=== PATIENT | male | born 1995 | race Caucasian/White ===

== ENCOUNTER 2018-08-31 01:52 | Emergency (ER) | payer OTHER ==
[2018-08-31] MEDS ORDERED: NS 1,000 ML IV ONE (01:57)
--- NOTE | 2018-08-31 01:58 | EDPHY ---
H & P Time Seen by Provider: 08/31/18 01:58 HPI/ROS: HPI CHIEF COMPLAINT: Chest pressure, gurgling in his chest. HISTORY OF PRESENT ILLNESS: 23-year-old male, presents emergency room stating that he has had pressure throughout his entire chest since noon today. It is now 2:00 a.m.. Also reports a gurgling sensation in his chest. He reports to me that he does feel anxious. He reports that on Monday he did cocaine. Also Adderall. This is now Monday morning a 1 week ago. He does smoke tobacco regularly. Marijuana regularly. No history of cardiovascular disease. Appears anxious upon arrival. Patient states that he did cocaine this week. As well as Adderall. Tobacco. Past Medical History: Denies significant medical history Past Surgical History: Denies significant surgical history Social History: Admits to Cocaine use, Adderall abuse, marijuana, tobacco Family History: Noncontributory ROS REVIEW OF SYSTEMS: 10 Systems were reviewed and negative with the exception of the elements mentioned in the history of present illness. Exam Constitutional triage nursing summary reviewed, vital signs reviewed, awake/ alert. Eyes normal conjunctivae and sclera, EOMI, PERRLA. HENT normal inspection, atraumatic, moist mucus membranes, no epistaxis, neck supple/ no meningismus, no raccoon eyes. Respiratory clear to auscultation bilaterally, normal breath sounds, no respiratory distress, no wheezing. Cardiovascular rate normal, regular rhythm, no murmur, no edema, distal pulses normal. Gastrointestinal soft, non-tender, no rebound, no guarding, normal bowel sounds, no distension, no pulsatile mass. Genitourinary no CVA tenderness. Musculoskeletal no midline vertebral tenderness, full range of motion, no calf swelling, no tenderness of extremities, no meningismus, good pulses, neurovascularly intact. Skin pink, warm, & dry, no rash, skin atraumatic. Neurologic awake, alert and oriented x 3, AAOx3, moves all 4 extremities equally, motor intact, sensory intact, CN II-XII intact, normal cerebellar, normal vision, normal speech. Psychiatric normal mood/affect. Heme/Lymph/Immune no lymphadenopathy. Differential diagnosis includes but is not limited to: Cocaine induced anxiety , cocaine induced chest pain ACS, atypical chest pain, pneumothorax, pneumonia , pulmonary embolism, aortic dissection, congestive heart failure, tumor, musculoskeletal pain, esophageal pain, GERD, peptic ulcer disease, pancreatitis Medical Decision Making: Plan for this patient IV establishment IV fluid bolus obtain EKG, chest x-ray, drug screen, IV Ativan, IV fluids, and re-evaluate. Re-evaluation: EKG interpretation by me on record in [employer] system. Impression time of EKG 2:07 a.m., sinus rhythm otherwise no acute ischemia no ST elevation or ST depression or T-wave abnormalities. No prolonged intervals. 6:13 a.m.. Patient resting comfortably no acute distress. EKG interpretation by me on record in [employer] system. Impression time of EKG 6:06 a.m., sinus rhythm rate of 54 no signs of acute ischemia. No signs of cardiac arrhythmia. 0752: Patient re-evaluated this time resting comfortably in no acute distress. No chest pain or shortness of breath vital signs are stable. The patient has been monitored here for 6 hr in the emergency room he had 2 troponins that are-0.00. The patient had 2 EKGs that are nonischemic. His 2nd EKG time 6:06 a.m., sinus rhythm rate of 54, without any signs of acute ischemia specifically no ST elevation no ST depression or T-wave abnormalities and no prolonged intervals. His initial EKG was timed 2:07 a.m. Sinus rhythm rate of 59 without any acute ischemia. I did recommend the patient refrain from doing cocaine or other drugs as this may be contributing to his anxiety and chest pressure. Additionally the patient received IV fluids and IV Ativan here and is resting comfortably and feels well. Denies any complaints at this time. He would like to go home. Return precautions discussed. Refrain from drug use. Chest x-ray one view negative for acute cardiopulmonary disease interpreted by myself. No pneumothorax. Cardiac silhouette normal. Source: Patient - Medical/Surgical History Hx Asthma: No Hx Chronic Respiratory Disease: No Hx Diabetes: No Hx Cardiac Disease: No Hx Renal Disease: No Hx Cirrhosis: No Hx Alcoholism: No Hx HIV/AIDS: No Hx Splenectomy or Spleen Trauma: No Other PMH: PMHx: heart murmur as child. PSHx: LUE cyst removal, wisdom tooth extraction, L wrist, other unk - Social History Smoking Status: Never smoked Constitutional: Initial Vital Signs Temperature (C) 36.5 C 08/31/18 01:56 Heart Rate 79 08/31/18 01:56 Respiratory Rate 18 08/31/18 01:56 Blood Pressure 126/87 H 08/31/18 01:56 O2 Sat (%) 96 08/31/18 01:56 O2 Delivery Mode Room Air Allergies/Adverse Reactions: peanuts Allergy (Uncoded 08/31/18 01:59) Home Medications: Medication Instructions Recorded NK [No Known Home Meds] 08/31/18 Medical Decision Making - Data Points Laboratory Results: Laboratory Results 08/31/18 02:13 08/31/18 02:13 08/31/18 08/31/18 08/31/18 06:12 04:00 02:15 WBC RBC Hgb Hct MCV MCH MCHC RDW Plt Count MPV Neut % (Auto) Lymph % (Auto) [place] % (Auto) Eos % (Auto) Baso % (Auto) Nucleat RBC Rel Count Absolute Neuts (auto) Absolute Lymphs (auto) Absolute Monos (auto) Absolute Eos (auto) Absolute Basos (auto) Absolute Nucleated RBC Immature Gran % Immature Gran # Sodium Potassium Chloride Carbon Dioxide Anion Gap BUN Creatinine Estimated GFR Glucose Calcium Magnesium Total Bilirubin Conjugated Bilirubin Unconjugated Bilirubin AST ALT Alkaline Phosphatase POC Troponin I 0.00 ng/mL ng/mL 0.00 ng/mL ng/mL (0.00-0.08) (0.00-0.08) NT-Pro-B Natriuret Pep Total Protein Albumin Urine Opiates Screen NEGATIVE (NEGATIVE) Urine Barbiturates NEGATIVE (NEGATIVE) Ur Phencyclidine Scrn NEGATIVE (NEGATIVE) Ur Amphetamine Screen NEGATIVE (NEGATIVE) U Benzodiazepines Scrn NEGATIVE (NEGATIVE) Urine Cocaine Screen NEGATIVE (NEGATIVE) U Marijuana (THC) Screen NEGATIVE (NEGATIVE) 08/31/18 08/31/18 02:13 02:13 WBC 8.70 10^3/uL 10^3/uL (3.80-9.50) RBC 4.81 10^6/uL 10^6/uL (4.40-6.38) Hgb 14.9 g/dL g/dL (13.7-17.5) Hct 41.7 % % (40.0-51.0) MCV 86.7 fL fL (81.5-99.8) MCH 31.0 pg pg (27.9-34.1) MCHC 35.7 g/dL g/dL (32.4-36.7) RDW 11.9 % % (11.5-15.2) Plt Count 341 10^3/uL 10^3/uL (150-400) MPV 9.3 fL fL (8.7-11.7) Neut % (Auto) 42.9 % % (39.3-74.2) Lymph % (Auto) 43.4 % % (15.0-45.0) [place] % (Auto) 7.6 % % (4.5-13.0) Eos % (Auto) 5.3 % % (0.6-7.6) Baso % (Auto) 0.6 % % (0.3-1.7) Nucleat RBC Rel Count 0.0 % % (0.0-0.2) Absolute Neuts (auto) 3.73 10^3/uL 10^3/uL (1.70-6.50) Absolute Lymphs (auto) 3.78 10^3/uL H 10^3/uL (1.00-3.00) Absolute Monos (auto) 0.66 10^3/uL 10^3/uL (0.30-0.80) Absolute Eos (auto) 0.46 10^3/uL H 10^3/uL (0.03-0.40) Absolute Basos (auto) 0.05 10^3/uL 10^3/uL (0.02-0.10) Absolute Nucleated RBC 0.00 10^3/uL 10^3/uL (0-0.01) Immature Gran % 0.2 % % (0.0-1.1) Immature Gran # 0.02 10^3/uL 10^3/uL (0.00-0.10) Sodium 141 mEq/L mEq/L (135-145) Potassium 4.1 mEq/L mEq/L (3.5-5.2) Chloride 105 mEq/L mEq/L (97-110) Carbon Dioxide 28 mEq/l mEq/l (22-31) Anion Gap 8 mEq/L mEq/L (6-14) BUN 16 mg/dL mg/dL (7-23) Creatinine 0.9 mg/dL mg/dL (0.7-1.3) Estimated GFR > 60 Glucose 90 mg/dL mg/dL (70-100) Calcium 10.1 mg/dL mg/dL (8.5-10.4) Magnesium 2.0 mg/dL mg/dL (1.6-2.3) Total Bilirubin 0.5 mg/dL mg/dL (0.1-1.4) Conjugated Bilirubin 0.2 mg/dL mg/dL (0.0-0.5) Unconjugated Bilirubin 0.3 mg/dL mg/dL (0.0-1.1) AST 24 IU/L IU/L (17-59) ALT 30 IU/L IU/L (21-72) Alkaline Phosphatase 57 IU/L IU/L (38-126) POC Troponin I NT-Pro-B Natriuret Pep 15 pg/mL pg/mL (0-125) Total Protein 6.8 g/dL g/dL (6.3-8.2) Albumin 4.3 g/dL g/dL (3.5-5.0) Urine Opiates Screen Urine Barbiturates Ur Phencyclidine Scrn Ur Amphetamine Screen U Benzodiazepines Scrn Urine Cocaine Screen U Marijuana (THC) Screen Medications Given: Discontinued Medications Sodium Chloride (Ns) 1,000 mls @ 0 mls/hr IV EDNOW ONE; Wide Open PRN Reason: Protocol Stop: 08/31/18 01:58 Last Admin: 08/31/18 02:15 Dose: 1,000 mls Lorazepam (Ativan Injection) 1 mg IVP EDNOW ONE Stop: 08/31/18 02:01 Last Admin: 08/31/18 02:15 Dose: 1 mg Point of Care Test Results: Chemistry 08/31/18 08/31/18 06:12 02:15 POC Troponin I 0.00 ng/mL ng/mL 0.00 ng/mL ng/mL (0.00-0.08) (0.00-0.08) Departure - Departure Disposition: Home, Routine, Self-Care Clinical Impression: Anxiety Condition: Good Instructions: Anxiety (ED) Additional Instructions: 1. Return emergency room if you have worsening symptoms 2. Refrain from drug use. 3. Stay well-hydrated and rest Referrals: NONE *PRIMARY CARE P,. [Primary Care Provider] - As per Instructions
[2018-08-31] MEDS ORDERED: LORazepam 2 MG/ML INJ IVP ONE (02:00)
[2018-08-31 02:26] LABS: PLATELET COUNT 341 10^3/uL (150-400)
--- NOTE | 2018-08-31 08:01 | CPEKG ---
Test Reason : OPEN Blood Pressure : / mmHG Vent. Rate : 059 BPM Atrial Rate : 059 BPM P-R Int : 189 ms QRS Dur : 097 ms QT Int : 384 ms P-R-T Axes : 040 083 060 degrees QTc Int : 381 ms Sinus rhythm Probable left ventricular hypertrophy Confirmed by Nikhil Castro ([id number]) on 08/31/2018 8:00:39 AM Referred By: Confirmed By:Nikhil Castro
[2018-08-31 08:24] VITALS: BP 104/83
--- NOTE | 2018-08-31 10:28 | CPEKG ---
Test Reason : OPEN Blood Pressure : / mmHG Vent. Rate : 054 BPM Atrial Rate : 000 BPM P-R Int : 183 ms QRS Dur : 098 ms QT Int : 386 ms P-R-T Axes : 053 083 060 degrees QTc Int : 366 ms Sinus rhythm Confirmed by Nolan Abrams ([id number]) on 08/31/2018 10:27:12 AM Referred By: Confirmed By:Nolan Abrams
== END 2018-08-31 08:49 | disposition home or self-care (01) ==
DX: F41.9 Anxiety disorder, unspecified (principal); E86.9 Volume depletion, unspecified; R07.9 Chest pain, unspecified; F14.90 Cocaine use, unspecified, uncomplicated; F15.10 Other stimulant abuse, uncomplicated; F12.90 Cannabis use, unspecified, uncomplicated; F17.200 Nicotine dependence, unspecified, uncomplicated
CPT/HCPCS: 80305; 84484-PO; 96374; J2060

== ENCOUNTER 2018-09-12 22:11 | Emergency (ER) | payer OTHER ==
[2018-09-12] MEDS ORDERED: MAG HYDROX/AL HYDROX/SIMETH 30 ML UDCUP PO ONE (22:57)
[2018-09-12] MEDS ORDERED: HYOSCYAMINE SULFATE 0.125 MG TAB PO ONE (22:57)
[2018-09-12] MEDS ORDERED: LIDOCAINE 2% VISCOUS 15 ML UDCUP PO ONE (22:57)
--- NOTE | 2018-09-12 23:01 | EDPHY ---
H & P Stated Complaint: epigastric/chest/L shoulder pain, recently seen and dx with anxety Time Seen by Provider: 09/12/18 22:34 HPI/ROS: HPI The patient presents with chest pain which began at about 4:00 p.m. Today while he was lying down. He describes an intermittent epigastric stabbing chest pain which is worse when he moves around. This is associated with nausea. This is moderate in severity and progressed throughout the course of the night so he comes in for evaluation. He does not have any shortness of breath, vomiting, dizziness, diaphoresis. Last night he drink about 5 years and used cocaine. He was seen in the emergency department on August 31 for chest pain which he says was different, more pressure in his left chest. He had full evaluation then including chest x-ray, EKG, 2 troponins which were all negative. There was some concern for anxiety verses cocaine being the cause of his pain. REVIEW OF SYSTEMS 10 systems were reviewed and negative with the exception of the elements mentioned in the history of present illness. PMHx: Cardiac murmur of some sort diagnosed in childhood followed by Cardiology , has echocardiograms every 3 years Soc Hx: College student, cocaine use, marijuana use, alcohol use PHYSICAL General Appearance: Alert, no distress Eyes: Pupils equal and round no pallor or injection ENT, Mouth: Mucous membranes moist Respiratory: There are no retractions, lungs are clear to auscultation Cardiovascular: Regular rate and rhythm Gastrointestinal: Abdomen is soft and non-tender, no masses, bowel sounds normal Neurological: A&O, moves all extremities Skin: Warm and dry, no rashes Musculoskeletal: Neck is supple non tender Extremities: symmetrical, full range of motion Psychiatric: Patient is oriented X 3, there is no agitation Source: Patient, Old records Exam Limitations: No limitations - Personal History Current Tetanus/Diphtheria Vaccine: Yes Current Tetanus Diphtheria and Acellular Pertussis (TDAP): Yes - Medical/Surgical History Hx Asthma: No Hx Chronic Respiratory Disease: No Hx Diabetes: No Hx Cardiac Disease: No Hx Renal Disease: No Hx Cirrhosis: No Hx Alcoholism: No Hx HIV/AIDS: No Hx Splenectomy or Spleen Trauma: No Other PMH: PMHx: heart murmur as child. PSHx: LUE cyst removal, wisdom tooth extraction, L wrist, other unk - Social History Smoking Status: Heavy smoker Constitutional: Initial Vital Signs Temperature (C) 36.8 C 09/12/18 22:13 Heart Rate 62 09/12/18 22:13 Respiratory Rate 20 09/12/18 22:13 Blood Pressure 134/99 H 09/12/18 22:13 O2 Sat (%) 98 09/12/18 22:13 O2 Delivery Mode Room Air Allergies/Adverse Reactions: peanuts Allergy (Uncoded 09/12/18 22:11) Home Medications: Medication Instructions Recorded NK [No Known Home Meds] 08/31/18 Medical Decision Making - Diagnostics EKG Interpretation: EKG: Complete interpretation has been separately recorded in the [email or web address] archive. Summary impression: Normal sinus rhythm. Differential Diagnosis: 23-year-old healthy male presents with several hours of epigastric stabbing pain which is intermittent. Differential diagnosis includes gastritis possibly related to alcohol use, pancreatitis, pulmonary embolism, pericarditis, cocaine induced chest pain. Here patient received a GI cocktail with some improvement in his symptoms. Labs were checked and were unremarkable including D-dimer and lipase. EKG shows a normal sinus Herber cardia. Patient will be discharged home. Anxiety is a possible cause of his symptoms. - Data Points Laboratory Results: Laboratory Results 09/12/18 23:00 09/12/18 23:00 09/12/18 09/12/18 09/12/18 23:00 23:00 23:00 WBC 9.13 10^3/uL 10^3/uL (3.80-9.50) RBC 5.03 10^6/uL 10^6/uL (4.40-6.38) Hgb 15.5 g/dL g/dL (13.7-17.5) Hct 43.3 % % (40.0-51.0) MCV 86.1 fL fL (81.5-99.8) MCH 30.8 pg pg (27.9-34.1) MCHC 35.8 g/dL g/dL (32.4-36.7) RDW 11.9 % % (11.5-15.2) Plt Count 364 10^3/uL 10^3/uL (150-400) MPV 9.4 fL fL (8.7-11.7) Neut % (Auto) 46.5 % % (39.3-74.2) Lymph % (Auto) 37.6 % % (15.0-45.0) [place] % (Auto) 8.9 % % (4.5-13.0) Eos % (Auto) 6.1 % % (0.6-7.6) Baso % (Auto) 0.7 % % (0.3-1.7) Nucleat RBC Rel Count 0.0 % % (0.0-0.2) Absolute Neuts (auto) 4.25 10^3/uL 10^3/uL (1.70-6.50) Absolute Lymphs (auto) 3.43 10^3/uL H 10^3/uL (1.00-3.00) Absolute Monos (auto) 0.81 10^3/uL H 10^3/uL (0.30-0.80) Absolute Eos (auto) 0.56 10^3/uL H 10^3/uL (0.03-0.40) Absolute Basos (auto) 0.06 10^3/uL 10^3/uL (0.02-0.10) Absolute Nucleated RBC 0.00 10^3/uL 10^3/uL (0-0.01) Immature Gran % 0.2 % % (0.0-1.1) Immature Gran # 0.02 10^3/uL 10^3/uL (0.00-0.10) D-Dimer < 0.27 ug/mLFEU ug/mLFEU (0.00-0.50) Sodium 138 mEq/L mEq/L (135-145) Potassium 4.1 mEq/L mEq/L (3.5-5.2) Chloride 105 mEq/L mEq/L (97-110) Carbon Dioxide 23 mEq/l mEq/l (22-31) Anion Gap 10 mEq/L mEq/L (6-14) BUN 18 mg/dL mg/dL (7-23) Creatinine 1.0 mg/dL mg/dL (0.7-1.3) Estimated GFR > 60 Glucose 80 mg/dL mg/dL (70-100) Calcium 10.0 mg/dL mg/dL (8.5-10.4) Total Bilirubin 0.7 mg/dL mg/dL (0.1-1.4) AST 23 IU/L IU/L (17-59) ALT 36 IU/L IU/L (21-72) Alkaline Phosphatase 62 IU/L IU/L (38-126) Total Protein 7.1 g/dL g/dL (6.3-8.2) Albumin 4.4 g/dL g/dL (3.5-5.0) Lipase 102 IU/L IU/L (23-300) Medications Given: Discontinued Medications Al Hydroxide/Mg Hydroxide (Maalox Susp) 30 ml PO ONCE ONE Stop: 09/12/18 22:58 Last Admin: 09/12/18 23:09 Dose: 30 ml Hyoscyamine Sulfate (Levsin, Hyomax-Sl) 0.25 mg PO ONCE ONE Stop: 09/12/18 22:58 Last Admin: 09/12/18 23:09 Dose: 0.25 mg Lidocaine (Lidocaine 2% Viscous) 15 ml PO ONCE ONE Stop: 09/12/18 22:58 Last Admin: 09/12/18 23:09 Dose: 15 ml Departure - Departure Disposition: Home, Routine, Self-Care Clinical Impression: Epigastric pain Chest pain Qualifiers: Chest pain type: unspecified Qualified Code(s): R07.9 - Chest pain, unspecified Condition: Good Instructions: Chest Pain (ED) Additional Instructions: I recommend that you avoid using alcohol and any drugs and see if this helps her symptoms. You should follow up with [facility] if your symptoms continue. You can return to the ER if your worse in any way. Referrals: [facility],. [Clinic] - As per Instructions
[2018-09-12 23:18] LABS: PLATELET COUNT 364 10^3/uL (150-400)
[2018-09-13 00:09] VITALS: BP 125/74
--- NOTE | 2018-09-13 00:14 | CPEKG ---
Test Reason : OPEN Blood Pressure : / mmHG Vent. Rate : 047 BPM Atrial Rate : 050 BPM P-R Int : 182 ms QRS Dur : 097 ms QT Int : 395 ms P-R-T Axes : 037 085 066 degrees QTc Int : 350 ms Sinus bradycardia Confirmed by Akanksha Lebron ([id number]) on 09/13/2018 12:14:17 AM Referred By: Confirmed By:Akanksha Lebrno
== END 2018-09-13 00:09 | disposition home or self-care (01) ==
DX: R07.89 Other chest pain (principal)